=== PATIENT | female | born 1980 | race Caucasian/White ===

== ENCOUNTER 2020-04-23 16:20 | Emergency (ER) | payer MEDICARE, SELFPAY ==
--- NOTE | 2020-04-23 16:25 | XR_ITS ---
WS: [id number] XR shoulder LT min 2V* [id number] REASON FOR EXAM: fall, left shoulder pain FINDINGS: Three-part fracture through the surgical left humeral neck. Distal fracture fragment is displaced tao ewhat medially and superiorly. Main humeral head fragment remains in appropriate relation to the molly oid. XR/XR shoulder LT min 2V* [id number] IMPRESSION: Left humeral fracture as above.
[2020-04-23 16:29] VITALS: BP 136/94; PULSE 98; RESP 18; TEMP 36.2; O2SAT 100; BMI 33.9
--- NOTE | 2020-04-23 16:56 | XRR_ITS ---
PROCEDURE INFORMATION: Exam: XR Chest, 1 View Exam date and time: 04/23/2020 4:57 PM Age: 39 years old Clinical indication: Injury or trauma; Fall; Blunt trauma (contusions or hematomas); Injury date: 04/23/2020; Additional info: Fractured humerus; TECHNIQUE: Imaging protocol: XR of the chest Views: 1 view. COMPARISON: CR Chest 1 [place] [id number] 07/22/2018 5:14 AM FINDINGS: Limitations: Study is made with kyphotic positioning. Lungs: No focal infiltrate is identified. Pleural space: Unremarkable. No pleural effusion. No pneumothorax. Heart/Mediastinum: There is gaseous distention of the esophagus which is a finding of uncertain significance. Diaphragm: There is moderate elevation left hemidiaphragm which appears to be due to gaseous distention of the stomach. Bones/joints: Fracture of the proximal left humerus is identified. XR/XR chest 1V portable [id number] IMPRESSION: 1. No acute infiltrate. 2. Fracture left humerus. 3. Gaseous distention of the stomach and esophagus of uncertain significance.
--- NOTE | 2020-04-23 16:56 | W.ED.EXTPRO ---
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 She reports tripped over her shoelace with a shoelace became attached to the Velcro. She reports sustained a fall with outstretched left arm. She states heard a crack. Immediate pain, states did not hit her head and denies any further injuries. MD Complaint: joint pain (Left shoulder) Onset (ago): minute(s) (30) Pain Consistency: constant Location: left and upper extremity Severity scale (1-10): >10 Quality: stabbing, aching and constant Radiation: proximal and distal Relieving factors: immobilization and rest Exacerbating factors: range of motion Associated symptoms: Reports no associated symptoms; Deny chest pain, fever(s) or rash Review of Systems General: Reports: 10 or more systems reviewed and unremarkable except in HPI and below Const: Denies: fever(s), chills or diaphoresis Eyes: Denies: blurry vision or eye redness ENMT: Denies: throat pain, dental pain or disequilibrium Card: Denies: chest pain, palpitations or irregular heart rhythm Resp: Denies: dyspnea, productive cough, non-productive cough or wheezing GI: Denies: abdominal pain, nausea or vomiting : Denies: difficulty voiding or dysuria Musc: Reports: joint pain (Left shoulder); Denies: neck pain or back pain Skin/Breast: Denies: rash or pruritus Neuro: Denies: headache(s), weakness in extremities or behavioral changes Psych: Denies: anxiety, depression or change in appetite Cesar/Lymph: Denies: easy bruising Physical Exam Const: COMMON NORMALS: patient oriented x3, healthy appearing, alert and well nourished GENERAL APPEARANCE: cooperative, well kempt, anxious, well hydrated and other (appears in pain, tearful) NUTRITIONAL APPEARANCE: obese ORIENTATION/CONSCIOUSNESS: Yes awake, Yes oriented to person, Yes oriented to place and Yes oriented to time HENMT: COMMON NORMALS: normocephalic, Normal external nose present and moist oral mucous membranes HEAD & SCALP: normocephalic NOSE: Normal external nose present Eye: COMMON NORMALS: Equal, round and reactive pupils present and EOMs intact bilaterally GENERAL EYE: appearance normal, both eyes and all related structures PUPIL: Yes Equal, round and reactive pupils present Neck/C-Spine: COMMON NORMALS: full ROM and no lymphadenopathy GENERAL: Yes normal visual inspection and Yes trachea midline CERVICAL SPINE: Yes cervical ROM normal, Yes normal cervical lordosis, No pain with cervical ROM, No Cervical spine tenderness and No Paracervical muscle tenderness Lymph: LYMPHATIC: no lymphadenopathy noted Chest: COMMONS NORMALS: normal inspection of the chest and normal palpation of entire chest wall CHEST: No localized rib tenderness with anteroposterior compression Resp: COMMON NORMALS: normal respiratory effort, No retractions and clear to auscultation bilaterally EFFORT & INSPECTION: Yes able to speak in complete sentences and Yes symmetric chest movement AUSCULTATION: clear to auscultation bilaterally Cardio: COMMON NORMALS: regular rate, regular rhythm, S1 normal heart sound present, S2 normal heart sound present and Peripheral pulses 2+ throughout RATE: regular rate RHYTHM: regular rhythm HEART SOUNDS: S1 normal heart sound present and S2 normal heart sound present PERIPHERAL PULSES: Peripheral pulses 2+ throughout GI: COMMON NORMALS: Normal to inspection, nondistended, normoactive bowel sounds present, Soft to palpation and non-tender INSPECTION: Yes normal to inspection PALPATION: Yes Soft to palpation : COMMON NORMALS: Yes no CVA tenderness BLADDER/KIDNEY EXAM: Yes no CVA tenderness Back/Pelvis: COMMON NORMALS: no CVA tenderness and thoracic and lumbar spine normal to inspection Extremity: COMMON NORMALS: normal to inspection and capillary refill normal GENERAL: Yes normal exam except as noted LEFT UPPER EXTREMITY: Yes shoulder joint (normal without abrasion) Left shoulder joint: Yes inspection and Yes clavicle (slight tenderness) Left clavicle: Yes palpation (extremely tender) and Yes neurovascular exam (distally intact) OTHER: Patient was examined for further injuries of the upper extremities, none were appreciated with exception of the left shoulder. Neuro: COMMON NORMALS: patient oriented x3 and no focal motor deficits SENSORIUM/ORIENTATION: Yes alert, Yes oriented to person, Yes oriented to place and Yes oriented to time Psych: COMMON NORMALS: mental status grossly normal, Normal thought process present and cooperative APPEARANCE: Yes well kempt ACTIVITY/MOTOR BEHAVIOR: Yes appropriate eye contact THOUGHT PROCESS: Normal thought process present Skin: COMMON NORMALS: no rashes or lesions noted and turgor normal GENERAL SKIN EXAM: no rashes or lesions noted and turgor normal Course Consultations: Consultation #1: Dr Lozada, radiology exam, method of injury and exam findings discussed. Order for shoulder immobilizer with follow-up at the Ortho clinic next week. Time: 17:25 Vital Signs: Vital signs: Vital Signs Temperature 97.2 F L 04/23/20 16:29 Pulse Rate 80 04/23/20 17:34 Respiratory Rate 18 04/23/20 16:29 Blood Pressure 136/94 04/23/20 16:29 Pulse Oximetry 100 04/23/20 16:29 MDM - Extremity (Nontraumatic) Imaging Data^: Xray Ortho: Radiologist's impression: [address] [address] XRay Report Signed Patient: Mali Riddle Unit #: [id number] : 1980 Age/Sex: 39 / F ADM Date: 04/23/20 Loc: ER Room/Bed: Attending Dr: Ordering Provider/Ordering MD: Ibis Montoya Date of Service: 04/23/20 Procedure(s): XR shoulder LT min 2V* [id number] Accession Number(s): [id number] Report Number: [id number] WS: [id number] XR shoulder LT min 2V* [id number] REASON FOR EXAM: fall, left shoulder pain FINDINGS: Three-part fracture through the surgical left humeral neck. Distal fracture fragment is displaced somewhat medially and superiorly. Main humeral head fragment remains in appropriate relation to the glenoid. XR/XR shoulder LT min 2V* [id number] IMPRESSION: Left humeral fracture as above. Dictated By: Ray Kraft Jr, MD Signed By: Ray Kraft Jr, MD Signed Date/Time: 04/23/201651 DD/ 48 Discharge Plan Discharge Patient Disposition: Home Clinical Impression: Fall against object Fracture of left humerus Qualifiers: Encounter type: initial encounter Humerus Location: surgical neck Fracture type: closed Fracture morphology: 3-part Qualified Code(s): S42.232A - 3-part fracture of surgical neck of left humerus, initial encounter for closed fracture Condition: Stable Prescriptions: New hydrocodone-acetaminophen 5-325 mg tablet 1 tab PO Q4H PRN (Reason: pain) Qty: 15 RF: 0 Zofran 4 mg tablet 4 mg PO Q4H Qty: 10 RF: 0 Discharge Orders: Discharge Order (Routine); Ordered 04/23/20 Ordered By: Ibis Montoya Discharge Diet: Usual diet Discharge Activity: Limit activity as instructed Patient Instructions: Arm Fracture in Adults (ED) Activity Restrictions/Additional Instructions: Remain in shoulder immobilizer, do not take arm out of the shoulder immobilizer or this could increase pain Apply ice, cool compresses to the affected area, left shoulder, never apply ice directly to the skin. You are to follow-up with orthopedic next week. Return to the ED if you experience redness, swelling or increased pain to the left upper extremity director of convention services will be contacting you with an appointment with orthopedic specialty next week Prescription of Zofran provided in the event that hydrocodone causes nausea take hydrocodone with food, may cause constipation, may take [id number] laxative as needed. Coding Level of Care Code ED Registered Land Surveyor for [employer] Fwjessica Exam Comprehensive
[2020-04-23] MEDS: ondansetron 2 mg/ML SDV 2 mL 4 MG IM (17:31)
[2020-04-23] MEDS: morphine 4 mg/mL SDV 1 mL IM (17:31)
[2020-04-23 17:34] VITALS: PULSE 80
--- NOTE | 2020-04-23 17:36 | PC.NURSE ---
pt tripped and fell, hitting left shoulder on way down. shoulder is swollen, ltd rom. distal pulses intact 3+. sensation is intact. cap refill <3.
--- NOTE | 2020-04-23 17:59 | PC.NURSE ---
pt placed in shoulder immobilizer
== END 2020-04-23 18:00 | disposition home or self-care (01) ==
LOC: ER 17:49
PROVIDERS: Emergency Provider Nurse Practitioner Family
DX: S42.232A 3-part fracture of surgical neck of left humerus, initial encounter for closed fracture (principal); W18.09XA Striking against other object with subsequent fall, initial encounter; Q79.60 Ehlers-Danlos syndrome, unspecified
CPT/HCPCS: 12345; 29240; 71045; 73030; 96372; 99282; 99283; J2270; J2405

== ENCOUNTER → 2020-06-27 08:13 | Day surgery (SDC) | payer MEDICARE, MEDICAID, SELFPAY ==
[2020-06-27 08:31] VITALS: BMI 35.3
[2020-06-27 08:36] VITALS: BP 111/81; PULSE 101; RESP 18; TEMP 36.6; O2SAT 99
[2020-06-27] MEDS: acetaminophen 325 mg Tablet 650 MG PO (08:41)
[2020-06-27] MEDS: ondansetron 4 MG Tablet PO (08:41)
[2020-06-27] MEDS: diphenhydrAMINE 25 mg Capsule PO (08:41)
[2020-06-27] MEDS: ferric carboxy (IVPB) 750 MG in sodium chloride 0.9% (100 ml) 100 ML 345 MG IV (08:58)
== END ==
PROVIDERS: Visit Provider Internal Medicine Hematology
DX: D50.8 Other iron deficiency anemias (principal)
CPT/HCPCS: 96365; J1439; Q0162

== ENCOUNTER → 2020-07-11 09:03 | Day surgery (SDC) | payer MEDICARE, MEDICAID, SELFPAY ==
[2020-07-11] MEDS: diphenhydrAMINE 25 mg Capsule PO (09:35)
[2020-07-11] MEDS: acetaminophen 325 mg Tablet 650 MG PO (09:35)
[2020-07-11] MEDS: ferric carboxy (IVPB) 750 MG in sodium chloride 0.9% (100 ml) 100 ML 345 MG IV (09:37)
[2020-07-11 09:45] VITALS: BP 101/70; PULSE 87; RESP 18; TEMP 36.8; O2SAT 94
[2020-07-11] MEDS: ondansetron 4 MG Tablet PO (09:49)
== END ==
PROVIDERS: Visit Provider Internal Medicine Hematology
DX: D50.8 Other iron deficiency anemias (principal)
CPT/HCPCS: 96365; J1439; Q0162

== ENCOUNTER 2020-11-02 22:01 | Emergency (ER) | payer MEDICARE, MEDICAID, SELFPAY ==
[2020-11-02 22:23] VITALS: BP 129/80; PULSE 98; RESP 16; TEMP 37.1; O2SAT 98; BMI 34.7
--- NOTE | 2020-11-03 00:20 | CTR_ITS ---
PROCEDURE INFORMATION: Exam: CT Abdomen And Pelvis Without Contrast Exam date and time: 11/03/2020 12:36 AM Age: 40 years old Clinical indication: Nausea; Abdominal pain; Prior surgery; Surgery date: <1 month; Surgery type: Colostomy; Patient HX: Appy, gb, hernia; Additional info: Abd pain nausea post op TECHNIQUE: Imaging protocol: Computed tomography of the abdomen and pelvis without contrast. Radiation optimization: All CT scans at this facility use at least one of these dose optimization techniques: automated exposure control; mA and/or kV adjustment per patient size (includes targeted exams where dose is matched to clinical indication); or iterative reconstruction. COMPARISON: CT abdomen pelvis w con* [id number] 10/04/2017 11:46 AM RADIATION DOSE METRICS: Total DLP (mGy-cm): 1219.15 FINDINGS: Lungs: The lung bases are clear. No effusion Mediastinal space: Stable dilation of the distal esophagus. Liver: Normal. No mass. Gallbladder and bile ducts: There has been a cholecystectomy. Pancreas: Normal. No ductal dilation. Spleen: Normal. No splenomegaly. Adrenal glands: Normal. No mass. Kidneys and ureters: Normal. No hydronephrosis. Stomach and bowel: There are changes of prior gastric bypass. There are changes of prior sigmoid anastomosis. There is an end colostomy in the left mid abdomen. Moderate-severe constipation. Appendix: No evidence of appendicitis. Intraperitoneal space: Unremarkable. No free air. No significant fluid collection. Vasculature: Unremarkable. No abdominal aortic aneurysm. Lymph nodes: Unremarkable. No enlarged lymph nodes. Urinary bladder: Unremarkable as visualized. Reproductive: Unremarkable as visualized. Bones/joints: Kyphoplasty at L4 and L5. Soft tissues: Small fat containing peristomal hernia. Tiny focus of gas in the ventral subcutaneous soft tissues of the abdomen. There is subcutaneous gas along the left flank which extends into the transversus muscles. Periumbilical wound with packing is present. CT/CT abdomen pelvis wo con [id number] IMPRESSION: 1. Stable dilation of the distal esophagus. 2. There is an end colostomy in the left mid abdomen. Moderate-severe constipation. 3. Postsurgical gas present in the abdominal wall. Radiation Dose CTDIVOL = (mGy): DLP = 1219.15 (mGy-cm)
--- NOTE | 2020-11-03 00:27 | W.ED.ABDPA2 ---
HPI - Abdominal Pain General: Chief Complaint: Abdominal Pain Stated Complaint: complications from surgery Time Seen by Provider: 11/03/20 00:07 History of Present Illness: HPI narrative: 40-year-old female with a history of a bowel perforation who is 2 weeks postop. She was hospitalized at [facility] in [place] for this. She had complications of sepsis, her stoma pulling away, and wound dehiscence. She presents with a decrease in stool output, increasing nausea, bloating, and discomfort today. No fever. No vomiting MD elicited complaint: abdominal pain Pertinent past history: constipation and other Onset (ago): hour(s) Pain Consistency: constant Location: Diffuse Severity: moderate Quality: cramping and aching Radiation: none Migration to: no migration Exacerbating factors: movement Relieving factors: nothing Context: recent surgery/procedure Associated Symptoms: Reports anorexia, bloating, change in bowel habits, change in stool character and nausea; Denies belching, coffee ground emesis, diarrhea, dysuria, fever(s) and vomiting Review of Systems Const: Denies: fever(s) Card: Denies: chest pain Resp: Denies: dyspnea, productive cough or non-productive cough GI: Reports: nausea, bloating, change in bowel habits and change in stool character; Denies: vomiting, coffee ground emesis, diarrhea or belching : Denies: dysuria Skin/Breast: Denies: rash Physical Exam Const: GENERAL APPEARANCE: well developed ORIENTATION/CONSCIOUSNESS: Yes oriented to person, Yes oriented to place and Yes oriented to time HENMT: COMMON NORMALS: normocephalic, external ears normal and Normal external nose present HEAD & SCALP: normocephalic FACE & SINUS: normal facial exam NOSE: Normal external nose present and No nasal discharge present EXTERNAL EAR: Yes external ears normal Eye: COMMON NORMALS: Equal, round and reactive pupils present, EOMs intact bilaterally and conjunctivae normal EYELID: eyelids normal CONJUNCTIVA: Yes conjunctivae normal PUPIL: Yes Equal, round and reactive pupils present Neck/C-Spine: GENERAL: No tracheal deviation Chest: COMMONS NORMALS: normal inspection of the chest CHEST: No tenderness Resp: COMMON NORMALS: clear to auscultation bilaterally EFFORT & INSPECTION: No tachypneic, No respiratory distress, No retractions, No uses accessory muscles and No tracheal deviation AUSCULTATION: clear to auscultation bilaterally, no rhonchi, no wheezes and lung sounds not diminished Cardio: COMMON NORMALS: regular rate and regular rhythm RATE: regular rate RHYTHM: regular rhythm HEART SOUNDS: no murmurs PERIPHERAL PULSES: radial pulses present GI: INSPECTION: Yes abdominal distension AUSCULTATION: No Hyperactive bowel sounds present and Yes Hypoactive bowel sounds present PALPATION: Yes Firmness to palpation present (GI), Yes Tenderness to palpation present (GI) (Diffuse), No Guarding due to palpation present (GI) and No Rigid due to palpation PERCUSSION: no dullness to percussion and no tympanic to percussion Neuro: SENSORIUM/ORIENTATION: Yes oriented to person, Yes oriented to place and Yes oriented to time Psych: COMMON NORMALS: mental status grossly normal Skin: COMMON NORMALS: no rashes or lesions noted GENERAL SKIN EXAM: no rashes or lesions noted Course Vital Signs: Vital signs: Vital Signs Temperature 98.7 F 11/02/20 22:23 Pulse Rate 89 11/03/20 04:23 Respiratory Rate 16 11/03/20 04:23 Blood Pressure 113/76 11/03/20 04:23 Pulse Oximetry 99 11/03/20 04:23 MDM - Abdominal Pain MDM Narrative: Medical decision making narrative: White blood cell count 9. Hemoglobin 12.5. Urinalysis and other laboratory is benign. Multiple attempts at IV access were made, but to no avail. She was given oral pain medication and Zofran. CT shows stable dilatation of the distal esophagus, moderate to severe constipation with a colostomy in the left midabdomen without significant complication. Lab Data: Labs: Lab Results 11/03/20 11/03/20 11/03/20 Range/Units 01:42 01:42 01:42 WBC 9.0 (4.0-10.0) 10^3/ uL RBC 3.98 L (4.1-5.3) 10^6/u L Hgb 12.5 (11.5-15.3) g/dL Hct 40.1 (37.0-47.0) % MCV 100.8 H (81-99) fL MCH 31.4 (28.0-34.0) pg MCHC 31.2 (30.0-36.0) g/dL RDW 13.6 (12.1-15.1) % Plt Count 967 H (130-400) 10^3/c mm MPV 8.5 (7.4-10.4) fL Neut % (Auto) 52.2 % Lymph % (Auto) 31.6 % [place] % (Auto) 9.9 % Eos % (Auto) 4.1 % Baso % (Auto) 1.2 % Neut # (Auto) 4.66 (1.8-7.7) 10^3/u L Lymph # (Auto) 2.8 (0.8-4.8) 10^3/u L [place] # (Auto) 0.9 (0.2-0.9) 10^3/u L Eos # (Auto) 0.4 (0.0-0.8) 10^3/u L Baso # (Auto) 0.1 (0.0-0.1) 10^3/u L Nucleated RBC % (a uto) 0 % Nucleated RBCs # 0.0 /100WBC Sodium 138 (136-145) mmol/L Potassium 3.4 L (3.5-5.1) mmol/L Chloride 99 (98-107) mmol/L Carbon Dioxide 26 (22-29) mmol/L Anion Gap 16.4 (5-19) BUN 7 (6-20) mg/dL Creatinine 0.6 (0.5-0.9) mg/dL GFR Calculation 110.2 (90-130) mL/min Glucose 96 (65-115) mg/dL Calculated Osmolal ity 284 L (285-295) mOsm/k g Lactate 0.7 (0.5-2.2) mmol/L Calcium 9.1 (8.5-10.5) mg/dL Total Bilirubin 0.4 (0.15-1.2) mg/dL AST 14 (0-32) U/L ALT 8 (0-33) U/L Alkaline Phosphata se 156 H (35-105) IU/L C-Reactive Protein 18.6 H (0.0-4.9) mg/L Total Protein 7.6 (6.6-8.7) g/dL Albumin 4.2 (3.5-5.2) g/dL Globulin 3.4 (1.3-4.6) g/dL Lipase 48 (13-60) U/L Urine Color (Yellow) Urine Appearance (CLEAR) Urine pH (5-7) Ur Specific Gravit y (1.005-1.030) Urine Protein (Negative) Urine Glucose (UA) (Normal) Urine Ketones (Negative) Urine Blood (Negative) Urine Nitrate (Negative) Urine Bilirubin (Negative) Urine Urobilinogen (Negative) mg/dL Ur Leukocyte Kendra ase (Negative) 11/03/20 Range/Units 02:57 WBC (4.0-10.0) 10^3/ uL RBC (4.1-5.3) 10^6/u L Hgb (11.5-15.3) g/dL Hct (37.0-47.0) % MCV (81-99) fL MCH (28.0-34.0) pg MCHC (30.0-36.0) g/dL RDW (12.1-15.1) % Plt Count (130-400) 10^3/c mm MPV (7.4-10.4) fL Neut % (Auto) % Lymph % (Auto) % [place] % (Auto) % Eos % (Auto) % Baso % (Auto) % Neut # (Auto) (1.8-7.7) 10^3/u L Lymph # (Auto) (0.8-4.8) 10^3/u L [place] # (Auto) (0.2-0.9) 10^3/u L Eos # (Auto) (0.0-0.8) 10^3/u L Baso # (Auto) (0.0-0.1) 10^3/u L Nucleated RBC % (a uto) % Nucleated RBCs # /100WBC Sodium (136-145) mmol/L Potassium (3.5-5.1) mmol/L Chloride (98-107) mmol/L Carbon Dioxide (22-29) mmol/L Anion Gap (5-19) BUN (6-20) mg/dL Creatinine (0.5-0.9) mg/dL GFR Calculation (90-130) mL/min Glucose (65-115) mg/dL Calculated Osmolal ity (285-295) mOsm/k g Lactate (0.5-2.2) mmol/L Calcium (8.5-10.5) mg/dL Total Bilirubin (0.15-1.2) mg/dL AST (0-32) U/L ALT (0-33) U/L Alkaline Phosphata se (35-105) IU/L C-Reactive Protein (0.0-4.9) mg/L Total Protein (6.6-8.7) g/dL Albumin (3.5-5.2) g/dL Globulin (1.3-4.6) g/dL Lipase (13-60) U/L Urine Color Yellow (Yellow) Urine Appearance Clear (CLEAR) Urine pH 5 (5-7) Ur Specific Gravit y 1.015 (1.005-1.030) Urine Protein Neg (Negative) Urine Glucose (UA) Norm (Normal) Urine Ketones Negative (Negative) Urine Blood Neg (Negative) Urine Nitrate Negative (Negative) Urine Bilirubin Neg (Negative) Urine Urobilinogen Norm (Negative) mg/dL Ur Leukocyte Kendra ase Negative (Negative) Discharge Plan Discharge Patient Disposition: Home Clinical Impression: Constipation Qualifiers: Constipation type: slow transit constipation Qualified Code(s): K59.01 - Slow transit constipation Condition: Stable Prescriptions: No Action hydrocodone-acetaminophen 5-325 mg tablet 1 tab PO Q4H PRN (Reason: pain) Qty: 15 RF: 0 ondansetron HCl [Zofran] 4 mg tablet 4 mg PO Q4H Qty: 10 RF: 0 Discharge Orders: Discharge ED (Routine); Ordered 11/03/20 Ordered By: Kar Doyle Discharge Diet: Advance as tolerated Discharge Activity: Increase activity as tolerated Patient Instructions: Constipation (ED), Opioid Safety Activity Restrictions/Additional Instructions: Drink the magnesium citrate at home. Return for worsening pain despite treatment, fever greater than 100, vomiting liquids or medications, other concerning symptoms. Follow-up with your surgeon as scheduled. Coding Level of Care Code ED Manager Fitness for Neil Fwd Exam Comprehensive
[2020-11-03 01:44] VITALS: BP 125/88; PULSE 89; RESP 17; O2SAT 98
[2020-11-03 01:54] LABS: Basophils # 0.1 10^3/uL (0.0-0.1); Basophils % 1.2 %; Eosinophils # 0.4 10^3/uL (0.0-0.8); Eosinophils % 4.1 %; Hematocrit 40.1 % (37.0-47.0); Hemoglobin 12.5 g/dL (11.5-15.3); Lymphocytes # 2.8 10^3/uL (0.8-4.8); Lymphocytes % 31.6 %; Mean Corpuscular HGB Conc 31.2 g/dL (30.0-36.0); Mean Corpuscular Hemoglobin 31.4 pg (28.0-34.0); Mean Corpuscular Volume 100.8 fL (81-99); Mean Platelet Volume 8.5 fL (7.4-10.4); Monocytes # 0.9 10^3/uL (0.2-0.9); Monocytes % 9.9 %; Neutrophils # 4.66 10^3/uL (1.8-7.7); Neutrophils % 52.2 %; Nucleated Red Blood Cells % 0 %; Platelet Count 967 10^3/cmm (130-400); Red Blood Count 3.98 10^6/uL (4.1-5.3); Red Cell Distribution Width 13.6 % (12.1-15.1)
[2020-11-03 02:00] VITALS: BP 126/62; PULSE 75; RESP 16; O2SAT 96
[2020-11-03 02:10] LABS: Lactate (Lactic Acid level) 0.7 mmol/L (0.5-2.2)
[2020-11-03 02:11] LABS: Alanine Aminotransferase 8 U/L (0-33); Albumin Level 4.2 g/dL (3.5-5.2); Alkaline Phosphatase 156 IU/L (35-105); Anion Gap 16.4 (5-19); Aspartate Amino Transferase 14 U/L (0-32); Blood Urea Nitrogen 7 mg/dL (6-20); C Reactive Protein 18.6 mg/L (0.0-4.9); Calcium 9.1 mg/dL (8.5-10.5); Carbon Dioxide 26 mmol/L (22-29); Chloride 99 mmol/L (98-107); Creatinine Clr Calc Pharmacy 151.9726; Globulin 3.4 g/dL (1.3-4.6); Glomerular Filtration Rate 110.2 mL/min (90-130); Glucose 96 mg/dL (65-115); Lipase 48 U/L (13-60); Osmolality Calculated 284 mOsm/kg (285-295); Potassium 3.4 mmol/L (3.5-5.1); Sodium 138 mmol/L (136-145); Total Bilirubin 0.4 mg/dL (0.15-1.2); Total Protein 7.6 g/dL (6.6-8.7)
--- NOTE | 2020-11-03 02:12 | PC.NURSE ---
After starting IV fluids and the fluids running for a few minutes patient states she thinks her IV blew. Swelling noted at IV site and IV painful to flush. IV removed.
[2020-11-03 03:27] LABS: Add Urine Microscopic? NO; Charge for UA Resulting for Rev
[2020-11-03 03:29] LABS: Bilirubin Urine Neg (Negative); Blood Urine Neg (Negative); Glucose Urine UA Norm (Normal); Ketones Urine Negative (Negative); Leukocyte Esterase Urine Negative (Negative); Nitrate Urine Negative (Negative); Protein Urine Neg (Negative); Specific Gravity, Urine 1.015 (1.005-1.030); Urine Appearance Clear (CLEAR); Urine Color Yellow (Yellow); Urobilinogen Urine Norm (Negative); pH Urine 5 (5-7)
[2020-11-03 04:20] VITALS: RESP 15; O2SAT 97
[2020-11-03] MEDS: oxyCODONE-APAP 5-325 mg Tablet 2 TAB PO (04:20)
[2020-11-03] MEDS: ondansetron 4 MG Tablet PO (04:21)
[2020-11-03 04:23] VITALS: BP 113/76; PULSE 89; RESP 16; O2SAT 99
[2020-11-03 04:52] VITALS: BP 118/78; PULSE 83; RESP 16; TEMP 36.8; O2SAT 98
--- NOTE | 2020-11-03 04:55 | PC.NURSE ---
Patient sent home with magnesium citrate 296 mL PO per provider.
== END 2020-11-03 04:56 | disposition home or self-care (01) ==
PROVIDERS: Emergency Provider Emergency Medicine
DX: K59.01 Slow transit constipation (principal)
CPT/HCPCS: 74176; 80053; 81003; 83605; 83690; 85025; 86140; 99283; Q0162

== ENCOUNTER → 2021-01-28 10:27 | Outpatient (BNVA) | payer MEDICARE, MEDICAID, SELFPAY | PROVIDERS: Visit Provider Nurse Practitioner Family | DX: M79.641 Pain in right hand (principal); M79.672 Pain in left foot; S93.145A Subluxation of metatarsophalangeal joint of left lesser toe(s), initial encounter; X58.XXXA Exposure to other specified factors, initial encounter; Z87.81 Personal history of (healed) traumatic fracture | CPT/HCPCS: 73120; 73620 ==

== ENCOUNTER → 2022-06-21 10:04 | Outpatient (BNVA) | payer MEDICARE, MEDICAID, SELFPAY | PROVIDERS: PCP Nurse Practitioner Family; Visit Provider Nurse Practitioner Family | DX: R07.81 Pleurodynia (principal) | CPT/HCPCS: 71110 ==

== ENCOUNTER 2024-08-09 09:23 | Outpatient (CLI) | payer MEDICARE, SELFPAY ==
--- NOTE | 2024-08-09 09:28 | FL_ITS ---
WS: [id number] Barium swallow and esophagram, 08/09/2024 Clinical Data: DYSPHAGIA Comparison: None. Fluoroscopy time: 1min [id number] # of spot films: 5 Findings: The patient swallowed the thick and thin barium, and it flowed through the hypopharynx without hesitation. No stricture, mass, polyp or erosion was seen. No aspiration or penetration occurred. The barium entered the esophagus and there was dilatation of the esophagus from the thoracic inlet to the gastroesophageal junction. The distal esophagus was dilated to 4.5 cm. No peristalsis could be seen. There were no fistulae, masses, polyps, erosions or ulcers. There was a hiatal hernia. Reflux occurred to the thoracic inlet. FL/FL barium swallow [id number] Impression: 1. Negative for aspiration or penetration into the trachea. 2. Dilated esophagus with absent motility. 3. Hiatal hernia with reflux to the thoracic inlet.
== END 2024-08-09 09:24 | disposition home or self-care (01) ==
LOC: RAD 09:26
PROVIDERS: PCP Nurse Practitioner Family; Visit Provider Specialist
DX: R13.19 Other dysphagia (principal); J31.2 Chronic pharyngitis; K22.89 Other specified disease of esophagus; K44.9 Diaphragmatic hernia without obstruction or gangrene; R93.89 Abnormal findings on diagnostic imaging of other specified body structures
CPT/HCPCS: 74220

== ENCOUNTER 2024-08-20 08:59 | Outpatient (CLI) | payer MEDICARE, SELFPAY ==
--- NOTE | 2024-08-20 09:04 | CT_ITS ---
WS: [id number] CT NECK TECHNIQUE: Contrast-enhanced CT of the neck with coronal and sagittal reformatted images. CLINICAL INFORMATION: DYSPHAGIA COMPARISON: None. DLP: 180.[address] scans at [facility] use at least one of these dose optimization techniques: automated exposure control; mA and/or kV adjustment per patient size (includes targeted exams where dose is matched to clinical indication); or iterative reconstruction. FINDINGS: Normal submandibular glands. Normal parotid glands. Normal posterior nasopharynx and parapharyngeal fat. No evidence of supraglottic or glottic mass. Normal epiglottis. Normal subglottic airway. Normal thyroid gland. Hazy atelectasis in the lung apices. Straightening of the normal cervical lordosis. Slight anterolisthesis C6 on C7. Wall thickening and enhancement in the upper thoracic esophagus. Recommend further evaluation with endoscopy. CT/CT neck w con* [id number] IMPRESSION: 1. Wall thickening and enhancement in the upper thoracic esophagus. Recommend further evaluation with endoscopy. Achalasia with dysmotility and reflux noted on the prior barium swallow 2. Normal salivary glands. 3. No cervical lymphadenopathy. 4. No evidence of supraglottic or glottic mass.
--- NOTE | 2024-08-20 09:04 | FL_ITS ---
WS: [id number] Exam: FL barium swallow modifd [id number] Date/Time of Exam: 08/20/2024 10:10 AM Reason For Exam: Other dysphagia Fluoroscopy time: 3min [id number] minutes # of spot films: Modified barium swallow test was performed in conjunction with the speech therapy service. Swallowing function at the level of the oropharynx was normal. The patient experienced 1 episode of mild penetration of barium into the laryngeal inlet. No aspiration. The patient swallowed a barium tablet without difficulty. The patient tolerated all consistencies of barium mixture foodstuffs without additional difficulty. Images of the lower esophagus demonstrate dilatation of the lower esophagus and probable achalasia. A hiatal hernia is also noted. Recommendations: A conventional barium swallow test might be helpful for further evaluation of the lower esophagus if thought to be clinically necessary. A separate report and recommendations will follow from the speech therapy service. FL/FL barium swallow modifd [id number] IMPRESSION: 1. Mild penetration into the laryngeal noted with the patient ingested thin liq uid barium. No aspiration was identified. 2. Dilatation of the mid to lower esophagus with large hiatal hernia. Findings suspicious for achalasia.
[2024-08-20] MEDS: iohexol 350 mg/mL 500 mL Btl (per mL) IV (09:23)
== END 2024-08-20 09:00 | disposition home or self-care (01) ==
PROVIDERS: PCP Nurse Practitioner Family; Visit Provider Specialist
DX: R13.19 Other dysphagia (principal); J31.2 Chronic pharyngitis; K22.89 Other specified disease of esophagus; J98.11 Atelectasis; R93.89 Abnormal findings on diagnostic imaging of other specified body structures; K44.9 Diaphragmatic hernia without obstruction or gangrene
CPT/HCPCS: 70491; 74230; 92611